=== PATIENT | female | born 1975 | race Asian ===

== ENCOUNTER 2019-11-07 04:18 | Inpatient (IN) | payer BC ==
[2019-11-06 10:08] VITALS: BMI 26.5
--- NOTE | 2019-11-07 08:05 | HP ---
History & Physical Update - History History: No Change - Physical Physical: No Change - Assessment Assessment: No Change - Plan Plan: No Change (H&P reviewed , no changes , for TVH , cystocele , rectocele repair)
[2019-11-07] MEDS ORDERED: ceFAZolin SODIUM 1 GM VIAL ONE (08:38)
[2019-11-07] MEDS ORDERED: CEFAZOLIN 1 GM in DEXTROSE 5%-WATER 100 ML IVPB ONE (09:00)
[2019-11-07] MEDS ORDERED: metroNIDAZOLE 0.75% VAGINAL GEL 70 GM TUBE ONE (09:44)
[2019-11-07] MEDS ORDERED: PROPOFOL 20 ML ONE ×3 (09:54→11:54)
[2019-11-07] MEDS ORDERED: MIDAZOLAM HCL 2 MG/2 ML SINGLE DOSE VIAL ONE ×2 (09:55)
[2019-11-07] MEDS ORDERED: ENOXAPARIN NA (PORCINE) 40 MG/0.4 ML DISP.SYRIN SQ SCH (10:00)
[2019-11-07] MEDS ORDERED: ceFAZolin SODIUM 1 GM VIAL IVPB ONE (11:07)
[2019-11-07] MEDS ORDERED: HYDROmorphone HCl 2 MG/ML VIAL ONE ×2 (11:24→15:08)
[2019-11-07] MEDS ORDERED: oxyCODONE HCL 5 MG TABLET PO PRN ×2 (11:31→12:53)
[2019-11-07] MEDS ORDERED: ONDANSETRON 4 MG/2 ML VIAL IVPUSH PRN ×2 (11:31→12:53)
[2019-11-07] MEDS ORDERED: LACTATED RINGERS SOLUTION 1,000 ML IV SCH (11:45)
--- NOTE | 2019-11-07 12:43 | SURG ---
Surgery Ground Layer Note Ground Layer: Quentin Tuttle PA-C Date of Service: 11/07/19 Diagnosis: uterovaginal prolapse Procedure: Transvaginal hysterectomy, anterior/posterior repair, pernioplasty, Rt salpingectomy I was present for the entirety of the operative procedure. For further detail, please refer to operative report. Visit type - Case Type Case Type: Scheduled - New patient This patient is new to me today: Yes Date on this admission: 11/07/19
[2019-11-07] MEDS ORDERED: IBUPROFEN 600 MG TABLET (FP) PO PRN (12:53)
[2019-11-07] MEDS ORDERED: TIZANIDINE HCL 4 MG TABLET PO PRN (12:55)
[2019-11-07] MEDS ORDERED: ELECTROLYTE-148 SOLN 1,000 ML IV SCH (13:00)
--- NOTE | 2019-11-07 13:00 | OP ---
Operative Note - Note: Operative Date: 11/07/19 Pre-Operative Diagnosis: uterovaginal prolapse Operation: vaginal hysterectomy, ant. post repair, pernioplasty, Rt salpingectomy Findings: uterovaginal prolapse Post-Operative Diagnosis: Same as Pre-op Surgeon: Martin Sloan Radial Drill Press Set Up Operator: Quentin Tuttle Anesthesia: Spinal Specimens Removed: uterus, cervix, rt fallopian tube , ant and post vaginal mucosa Estimated Blood Loss (mls): 150 Drains & Tubes with Location: talavera. vaginal packing Drains, Volume Out (mls): 0 Blood Volume Replaced (mls): 0 Operative Report Dictated: Yes
[2019-11-07] MEDS ORDERED: ONDANSETRON 4 MG/2 ML VIAL ONE (14:51)
[2019-11-07] MEDS ORDERED: HYDROmorphone HCl 2 MG/ML VIAL IVPB PRN (15:22)
[2019-11-07] MEDS ORDERED: HYDROmorphone *PCA* 10MG/50ML DISP.SYRIN ONE (15:45)
[2019-11-07] MEDS ORDERED: HYDROmorphone *PCA* 10MG/50ML DISP.SYRIN PCA SCH (16:00)
[2019-11-07] MEDS ORDERED: CEFAZOLIN 1 GM in DEXTROSE 5%-WATER - 50 ML IVPB SCH (18:00)
[2019-11-07] MEDS: CEFAZOLIN 1 GM/D5W 1 GM/50 ML BAG IVPB SCH (18:17)
[2019-11-07] MEDS: IBUPROFEN 800 MG/8 ML IJ IVPB PRN (20:47)
[2019-11-08] MEDS ORDERED: CEFAZOLIN 1 GM/D5W 1 GM/50 ML BAG ONE (02:04)
[2019-11-08] MEDS: CEFAZOLIN 1 GM/D5W 1 GM/50 ML BAG IVPB SCH ×2 (02:08→10:54)
[2019-11-08] MEDS: IBUPROFEN 800 MG/8 ML IJ IVPB PRN (06:24)
[2019-11-08 08:16] LABS: HEMATOCRIT 32.9 % (32.4-45.2); HEMOGLOBIN 10.8 GM/dL (10.7-15.3); MCH 27.7 pg (25.7-33.7); MCHC 32.9 g/dl (32.0-36.0); MEAN PLT VOLUME 7.7 fl (7.5-11.1); PLATELET COUNT 308 K/MM3 (134-434); RBC 3.92 M/mm3 (3.60-5.2); WHITE BLOOD COUNT 13.4 K/mm3 (4.0-10.0)
--- NOTE | 2019-11-08 08:20 | PN ---
Progress Note (short form) - Note Progress Note: pod1 , doing well, no active vaginal bleeding or discharge, has mid suprapubic discomfort Last Vital Signs Temp Pulse Resp BP Pulse Ox 98.4 F 69 20 128/78 96 11/08/19 06:00 11/08/19 06:00 11/08/19 06:00 11/08/19 06:00 11/08/19 02:00 abdomen soft, no distension , no cva BS are present vagina , no bleeding, no discharge packing removed talavera removed plan monitor out put pain management DVT prophylaxis if ok wants to go home today
[2019-11-08 09:31] LABS: BLOOD UREA NITROGEN 10.8 mg/dL (7-18); CALCIUM 8.4 mg/dL (8.5-10.1); CREATININE 0.6 mg/dL (0.55-1.3); POTASSIUM 3.5 mmol/L (3.5-5.1)
--- NOTE | 2019-11-08 10:00 | OP ---
DATE OF OPERATION: 11/07/2019 PREOPERATIVE DIAGNOSES: Uterovaginal prolapse, cystocele, rectocele. POSTOPERATIVE DIAGNOSES: Uterovaginal prolapse, cystocele, rectocele. PROCEDURE: Vaginal hysterectomy, cystocele, rectocele, perineoplasty, and right salpingectomy. SURGEON: Martin Sloan MD AIRLINE COUNTER AGENT: LESLI Fuentes ANESTHESIA: Spinal. ESTIMATED BLOOD LOSS: 150 mL. DESCRIPTION OF PROCEDURE: The patient was taken to the operative room, under adequate spinal anesthesia, abdomen, vaginal, and perineum were prepped and draped in dorsal lithotomy position. Examination under anesthesia revealed external genitalia, vaginal introitus to be gaping. There was a grade 2 cystocele and rectocele and a second-degree uterovaginal prolapse. Uterus normal size, retroverted. Adnexa, no masses palpable. Then, with a weighted speculum in the vagina, anterior and posterior lip of cervix was grasped with single-toothed tenaculum and then anterior vaginal and posterior vaginal mucosa was infiltrated with diluted solution of vasopressin. Then, a circumferential incision was made around the cervix, and the posterior vaginal mucosa was dissected from the cervix with some Metzenbaum scissors and with blunt dissection. Then, the anterior vaginal mucosa was dissected with Metzenbaum and with blunt dissection, and then the bladder was pushed up. At this time, the posterior vaginal mucosa was grasped with a pickup and then the posterior cul-de-sac was entered. Peritoneum was sutured to the vaginal mucosa, and then a weighted speculum was advanced into the cul-de-sac. Then, the bladder was further pushed up, and uterosacral ligament was identified bilaterally and clamped with Jose Raul clamp, cut, and the clamp replaced with 0 Vicryl suture bilaterally. At this time, the bladder was further dissected from the cervix and elevated, and then the uterine artery was identified bilaterally, clamped with Jose Raul clamp, cut, and the clamp replaced with 0 Vicryl suture bilaterally. Then, parametrium was grasped with Jose Raul clamp and cut, and the clamp replaced with 0 Vicryl suture bilaterally, and then the upper pedicles were reached. Then, uteroovarian ligament was grasped with the Jose Raul clamp and cut, and then the clamp replaced first with 0 Vicryl ties and then with 0 Vicryl suture bilaterally these pedicles were held. Then, the right tube was seen in the cul-de-sac. Right tube was grasped with a LigaSure cautery, cauterized, and removed. Both ovaries were normal. No active bleeding was seen. Then, the peritoneum was closed with 0 Vicryl and pursestring suture, and then uterosacral ligament was brought together with interrupted suture of 0 Vicryl. Then, the cystocele repair was started by infiltrating the anterior vaginal mucosa with dilute solution of vasopressin, and then the vaginal mucosa was undermined with Metzenbaum scissor and bladder was dissected from the vaginal mucosa with sharp and blunt dissection. Then, the excess vaginal mucosa was cut and then the cystocele was reduced with pursestring suture of 3-0 Vicryl, and then several mattress sutures were placed over the bladder for reinforcement and then the vaginal mucosa was closed with continuous suture of 2-0 Vicryl. At this time, the posterior vaginal mucosa was infiltrated with a dilute solution of vasopressin and posterior vaginal mucosa was undermined with Metzenbaum scissors and from the rectum and then the rectum was from the vaginal mucosa. Excess vaginal mucosa was removed with Metzenbaum scissors, and then several mattress sutures were placed over the rectocele and rectocele was reduced completely. Then, the vaginal mucosa was closed with interrupted sutures of the 2-0 Vicryl. Then, the perineoplasty started by removing the excess posterior perineal skin and then the muscles were brought together with interrupted sutures or 0 Vicryl. Then, the incision was closed in episiotomy-like fashion, and then the skin was closed with interrupted suture of 3-0 Vicryl. Then, a rectal exam was done that was normal. Vaginal packing was inserted into the vagina. Grant catheter was inserted. Clear urine noted. No bleeding was seen. The patient tolerated the procedure well, left the OR in good condition. Drew [id number]
[2019-11-08 10:40] VITALS: PULSE 90; TEMP 98
--- NOTE | 2019-11-08 11:47 | PN ---
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 NO anesthesia complications.
[2019-11-08] MEDS ORDERED: PCA PUMP KEY 1 EACH EACH ONE (13:39)
[2019-11-08 14:09] VITALS: BP 125/70
--- NOTE | 2019-11-08 16:38 | DS ---
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 Vital Signs: Vital Signs Temperature 98.0 F 11/08/19 14:00 Pulse Rate 90 11/08/19 14:00 Respiratory Rate 18 11/08/19 14:00 Blood Pressure 125/70 11/08/19 14:00 O2 Sat by Pulse Oximetry (%) 96 11/08/19 02:00 Constitutional: Yes: Well Nourished, No Distress, Calm Eyes: Yes: WNL, Conjunctiva Clear, EOM Intact HENT: Yes: WNL, Atraumatic, Normocephalic Neck: Yes: WNL, Supple, Trachea Midline Cardiovascular: Yes: WNL, Regular Rate and Rhythm Respiratory: Yes: WNL, Regular, CTA Bilaterally Gastrointestinal: Yes: WNL ...Rectal Exam: Yes: WNL Renal/: Yes: WNL External Genitalia: Yes: Normal Vaginal Exam: Yes: Normal Breast(s): Yes: WNL Musculoskeletal: Yes: WNL Extremities: Yes: WNL Edema: No Integumentary: Yes: WNL Neurological: Yes: WNL, Alert, Oriented ...Motor Strength: WNL Psychiatric: Yes: WNL, Alert, Oriented Labs: CBC, BMP 11/08/19 07:23 11/08/19 07:23 Discharge Summary Problems reviewed: Yes Reason For Visit: RECTOCELE, uterovaginal prolapse Procedures: Principal: TVH, RT salpingectomy, a.p repair, perniorapphy Hospital Course: no complication Plan of Treatment: follow up office 2 weeks Condition: Good - Instructions Diet, Activity, Other Instructions: Dr. Sloan Tour Bus Driver/Guide Discharge Instructions Physical activity Resume your normal everyday activity as tolerated no heavy lifting or exercise until seen by your surgeon. You may walk unlimited mumtaz of and climb stairs. You may resume driving the car when you feel safe and comfortable behind the wheel. No sexual activity as instructed by Dr. Sloan. Wound care If you have a bandage, leave it on, and keep dry for 48-72 hours. After that time discard the outer bandage. If they are tapes on the skin under the out of bandage leave them in place. They will peel off in the next 7 to 10 days. Do Not Peel them off. You may shower the day after surgery. If there are tapes present on the skin, you may shower over them. Diet There are no dietary restrictions. Eat healthy, high-fiber foods. Drink 6 to 8 glasses of liquid each day. This will assist in keeping your bowels are regular. Pain management You may take Tylenol or acetaminophen or Ibuprofen (for example, Motrin, Advil etc.) from my pain prescription medication is ordered should be taken as prescribed for moderate to severe pain. Call Dr. Sloan for any of the following: Severe pain not relieved by medication Fever of 101 or higher Excessive bleeding or drainage on dressing Inability to urinate Call the office for an appointment in seven days. iSTOP The Drug Utilization Report below displays all of the controlled substance prescriptions, if any, that your patient has filled in the last twelve months. The information displayed on this report is compiled from pharmacy submissions to the Department, and accurately reflects the information as submitted by the pharmacies. This report was requested by: Quentin Tuttle | Reference #: [id number] Referrals: Martin Sloan MD [Staff Physician] - Disposition: HOME - Home Medications Comprehensive Discharge Medication List: Ambulatory Orders Tizanidine HCl 4 mg PO PRN PRN 11/06/19 Ibuprofen [Motrin -] 600 mg PO TID #21 tablet 11/08/19 Oxycodone HCl/Acetaminophen [Percocet 5-325 mg Tablet] 1 tab PO Q6H PRN #20 tablet MDD 4 11/08/19"
--- NOTE | 2019-11-10 10:39 | PATH ---
Surgical Pathology Report Patient Name: OSCAR DUEÑAS [facility]. Rec. #: [id number] /Age/Gender: 1975 (Age: 44) / F Account: [id number] Location: [facility] OBS/TOUCHER UP Taken: 11/07/2019 Received: 11/07/2019 Reported: 11/10/2019 Physicians: Martin Sloan M.D. Specimen(s) Received A: IUD EXPLANT B: UTERUS, RIGHT FALLOPIAN TUBE, AND CERVIX Clinical History Rectocele Final Diagnosis A. INTRAUTERINE DEVICE (IUD) EXPLANT, REMOVAL: FOREIGN BODY MATERIAL CONSISTENT WITH INTRAUTERINE DEVICE (IUD). MACROSCOPIC DIAGNOSIS. B. UTERUS, RIGHT FALLOPIAN TUBE, AND CERVIX, TOTAL VAGINAL HYSTERECTOMY, PERINEOPLASTY, RIGHT SALPINGECTOMY: 122 G UTERUS. LEIOMYOMA(TA), INTRAMURAL. SECRETORY ENDOMETRIUM. CERVIX WITH FOCAL PARAKERATOSIS. UNREMARKABLE RIGHT FALLOPIAN TUBE (INCLUDING FIMBRIATED END AND FULL LUMINAL PORTION). SQUAMOUS MUCOSA WITH FOCAL PARAKERATOSIS COMPATIBLE WITH VAGINAL MUCOSA. Electronically Signed Annie Mayers M.D. Gross Description A. Received fresh labeled "IUD explant," are 2 carrasco metallic, coiled portions of wire measuring 0.5 and 22.0 cm in length. No soft tissue is present. No sections are submitted, gross only. B. Received in formalin labeled "uterus, right fallopian tube and cervix," is a 122 g uterus with an attached cervix and no attached adnexa. There is a portion of fallopian tube separately received within the same container. The specimen measures 8.8 cm from superior to inferior, 5.4 cm from left to right and 5.2 cm from anterior to posterior. The serosa is monzon-carrasco and smooth. The attached cervix measures 2.5 cm in length and averages 2.0 cm in diameter. The ectocervix is monzon, smooth and glistening. The endocervix is unremarkable. The endometrial cavity measures 4.5 cm in length and averages 3 cm from cornu to cornu. The endometrium is monzon-red and measures up to 0.3 cm in thickness. The myometrium displays multiple small intramural nodules, measuring up to 2.0 cm in greatest dimension. The cut surface of the nodules is monzon and rubbery with whorled architecture. No areas of hemorrhage or necrosis are identified. The remaining myometrium is monzon-pink and averages 2.5 cm in thickness. The separately received portion of fallopian tube measures 1 cm in length and displays attached fimbria. The outer surface is carrasco purple and smooth. Sectioning reveals an unremarkable lumen. Also received within the same container are 3 monzon portions of soft tissue ranging from 1.5 x 0.9 x 0.2 cm to 3.8 x 2.0 x 0.2 cm. Body Cleaner sections are submitted in 11 cassettes as follows: 1-anterior cervix; 2-posterior cervix; 2-6-khyhvqpw endomyometrium; 7-1-mesutzqvc endomyometrium; 4-7-qhjyvnymhj nodules; 9-right fallopian tube fimbria; 10-cross sections of right fallopian tube (entirely submitted); 11-claims customer service representative sections from separately received soft tissue. 11/08/2019 [facility]11/08/2019
== END 2019-11-08 14:50 | disposition home or self-care (01) | DRG 743 ==
LOC: J2C 04:18 → J3W 17:09 → UNDODISIN 11-08 12:00
PROVIDERS: ADMIT Obstetrics & Gynecology; ATTEND Obstetrics & Gynecology
PROC: 0JQC0ZZ Repair Pelvic Region Subcutaneous Tissue and Fascia, Open Approach (ICD-10-PCS; 2019-11-07)
PROC: 0UT90ZZ Resection of Uterus, Open Approach (ICD-10-PCS; principal; 2019-11-07 10:00)
PROC: 0UB50ZZ Excision of Right Fallopian Tube, Open Approach (ICD-10-PCS; 2019-11-07 10:00)
DX: N81.3 Complete uterovaginal prolapse (principal)
CPT/HCPCS: 36415; 80048; 84703; 85027; 86850; 86900; 86901; 88300-TC; 88307-TC; 94010; 94760